=== PATIENT | female | born 1990 | race Caucasian/White ===

== ENCOUNTER 2018-05-01 09:52 | Emergency (ER) | payer OTHER ==
[~2018-05-01] VITALS: Ht 170.2 cm; Wt 90.0 kg
[~2018-05-01 09:52] MED LIST: NAPROSYN375 MG PO; TESSALON PER100 MG PO; ZITHROMAX250 MG PO
[2018-05-01] MEDS ORDERED: XANAX1 MG PO (11:02)
[2018-05-01] MEDS ORDERED: FLUCONAZOLE150 MG PO (11:18)
[2018-05-01] MEDS ORDERED: BUPROPION HCL300 MG PO (11:18)
[2018-05-01] MEDS ORDERED: DOXYCYC MONO100 M2 PO (11:19)
[2018-05-01] MEDS ORDERED: METRONIDAZOLE500 MG PO (11:19)
[2018-05-01] MEDS ORDERED: TESSALON PER100 MG PO (12:11)
[2018-05-01] MEDS ORDERED: PREDNISONE20 MG PO (12:11)
[2018-05-01 12:15] VITALS: BP 123/77
== END 2018-05-01 12:15 | disposition home or self-care (01) ==
LOC: ED 09:52
DX: R05 Cough (principal); F17.210 Nicotine dependence, cigarettes, uncomplicated; R07.9 Chest pain, unspecified

== ENCOUNTER 2019-10-09 16:06 | Emergency (ER) | payer OTHER ==
[~2019-10-09] VITALS: Ht 170.2 cm; Wt 81.0 kg
[~2019-10-09 16:06] MED LIST changes: +BUPROPION HCL300 MG PO; +DOXYCYC MONO100 M2 PO; +FLUCONAZOLE150 MG PO; +METRONIDAZOLE500 MG PO; +PREDNISONE20 MG PO; +XANAX1 MG PO
[2019-10-09 16:51] LABS: URINE BILIRUBIN - DIPSTICK NEGATIVE (NEGATIVE); URINE BLOOD DIPSTICK MODERATE (NEGATIVE); URINE COLOR YELLOW; URINE GLUCOSE - DIPSTICK NEGATIVE (NEGATIVE); URINE KETONE NEGATIVE (NEGATIVE); URINE LEUK ESTERASE NEGATIVE (NEGATIVE); URINE NITRITE - DIPSTICK NEGATIVE (Negative); URINE PROTEIN - DIPSTICK NEGATIVE (NEG-TRACE); URINE SPECIFIC GRAVITY 1.015; URINE UROBILINOGEN - DIPSTICK 0.2 E.U./dL (0.2)
[2019-10-09 17:04] LABS: URINE SQUAMOUS EPITHELIAL CELL FEW EPI/hpf (0-FEW)
[2019-10-09 17:22] LABS: HEMATOCRIT 41.5 % (37.0-47.0); HEMOGLOBIN 13.3 g/dl (12.0-16.0); IMMATURE GRANULOCYTES 0.2 % (0.0-5.0); MEAN CELL VOLUME 98.1 fL CALC (80.0-100.0); MEAN CORPUSCULAR HGB 31.4 pG CALC (26.0-32.0); NEUT# 6.43 thou/uL (2.00-7.15); RED BLOOD COUNT 4.23 mill/uL (4.20-5.60); RED CELL DISTRI WIDTH 12.7 % (11.5-15.5)
[2019-10-09 17:34] LABS: ALKALINE PHOSPHATASE 114 u/l (38-126); ANION GAP 13 (6-22 (CALC)); BUN 10 mg/dL (7-17); BUN/CREATININE RATIO 15 (12-20 (CALC)); CARBON DIOXIDE 22 mmol/l (22-30); CHLORIDE 106 mmol/l (95-108); CREATININE 0.7 mg/dL (0.5-1.0); GFR > 60 ML/MIN (>=60 (CALC)); GFR FOR AFR.AMER. > 60 ML/MIN (>=60 (CALC)); POTASSIUM 3.8 mmol/l (3.5-5.1); SGOT/AST 16 u/l (14-36); SODIUM 137 mmol/l (137-146); TOTAL PROTEIN 7.5 g/dL (6.3-8.2)
[2019-10-09 17:37] LABS: ALBUMIN 4.6 g/dL (3.2-5.0); BILIRUBIN, TOTAL 0.4 mg/dL (0.0-1.4)
[2019-10-09] MEDS ORDERED: MIRALAX3350 N1 PO ×2 (18:54)
[2019-10-09] MEDS ORDERED: KEFLEX500 M1 PO ×2 (18:54)
[2019-10-09] MEDS ORDERED: LORTAB 1010 MG PO (18:54)
[2019-10-09 19:01] VITALS: BP 112/60
== END 2019-10-09 19:11 | disposition home or self-care (01) ==
LOC: ED 16:06
PROVIDERS: Emergency Medicine
DX: N39.0 Urinary tract infection, site not specified (principal); K59.00 Constipation, unspecified; F17.210 Nicotine dependence, cigarettes, uncomplicated; Z87.440 Personal history of urinary (tract) infections
CPT/HCPCS: Q9967

== ENCOUNTER 2019-11-21 14:15 | Emergency (ER) | payer OTHER ==
[~2019-11-21] VITALS: Ht 170.2 cm; Wt 85.0 kg
[~2019-11-21 14:15] MED LIST changes: +KEFLEX500 M1 PO; +LORTAB 1010 MG PO; +MIRALAX3350 N1 PO
[2019-11-21] MEDS ORDERED: ADDERALL20 MG PO (15:00)
[2019-11-21 15:07] LABS: HEMATOCRIT 41.4 % (37.0-47.0); HEMOGLOBIN 13.2 g/dl (12.0-16.0); IMMATURE GRANULOCYTES 0.3 % (0.0-5.0); MEAN CELL VOLUME 97.2 fL CALC (80.0-100.0); MEAN CORPUSCULAR HGB CONC 31.9 g/dL CAL (32.0-36.0); NEUT# 7.85 thou/uL (2.00-7.15); RED BLOOD COUNT 4.26 mill/uL (4.20-5.60); RED CELL DISTRI WIDTH 12.2 % (11.5-15.5)
[2019-11-21 15:27] LABS: ALBUMIN 4.6 g/dL (3.2-5.0); ALKALINE PHOSPHATASE 131 u/l (38-126); ANION GAP 13 (6-22 (CALC)); BILIRUBIN, TOTAL 0.5 mg/dL (0.0-1.4); BUN 8 mg/dL (7-17); BUN/CREATININE RATIO 14 (12-20 (CALC)); CARBON DIOXIDE 24 mmol/l (22-30); CHLORIDE 104 mmol/l (95-108); CREATININE 0.6 mg/dL (0.5-1.0); GFR > 60 ML/MIN (>=60 (CALC)); GFR FOR AFR.AMER. > 60 ML/MIN (>=60 (CALC)); POTASSIUM 3.5 mmol/l (3.5-5.1); SGOT/AST 20 u/l (14-36); SODIUM 138 mmol/l (137-146); TOTAL PROTEIN 7.8 g/dL (6.3-8.2)
[2019-11-21 15:32] LABS: HCG SERUM/URINE (NEG/POS) NEGATIVE (NEGATIVE)
[2019-11-21 18:15] VITALS: BP 136/74
== END 2019-11-21 18:26 | disposition home or self-care (01) ==
LOC: ED 14:15
PROVIDERS: Family Medicine
DX: R51 Headache (principal); F41.9 Anxiety disorder, unspecified; F17.200 Nicotine dependence, unspecified, uncomplicated; Z20.828 Contact with and (suspected) exposure to other viral communicable diseases

== ENCOUNTER 2020-11-01 16:15 | Emergency (ER) | payer OTHER ==
[~2020-11-01 16:15] MED LIST changes: +ADDERALL20 MG PO
[2020-11-01 17:44] LABS: HEMATOCRIT 35.5 % (37.0-47.0); HEMOGLOBIN 11.2 g/dl (12.0-16.0); IMMATURE GRANULOCYTES 0.3 % (0.0-5.0); MEAN CELL VOLUME 100.6 fL CALC (80.0-100.0); MEAN CORPUSCULAR HGB 31.7 pG CALC (26.0-32.0); MEAN CORPUSCULAR HGB CONC 31.5 g/dL CAL (32.0-36.0); NEUT# 4.49 thou/uL (2.00-7.15); RED BLOOD COUNT 3.53 mill/uL (4.20-5.60); RED CELL DISTRI WIDTH 13.2 % (11.5-15.5)
[2020-11-01 18:04] LABS: ALBUMIN 3.5 g/dL (3.2-5.0); ALKALINE PHOSPHATASE 152 u/l (38-126); ANION GAP 12 (6-22 (CALC)); BUN 13 mg/dL (7-17); BUN/CREATININE RATIO 20 (12-20 (CALC)); CARBON DIOXIDE 21 mmol/l (22-30); CHLORIDE 105 mmol/l (95-108); CREATININE 0.6 mg/dL (0.5-1.0); GFR > 60 ML/MIN (>=60 (CALC)); GFR FOR AFR.AMER. > 60 ML/MIN (>=60 (CALC)); POTASSIUM 3.5 mmol/l (3.5-5.1); SGOT/AST 22 u/l (14-36); SODIUM 135 mmol/l (137-146); TOTAL PROTEIN 6.6 g/dL (6.3-8.2)
[2020-11-01 18:47] LABS: URINE BILIRUBIN - DIPSTICK NEGATIVE (NEGATIVE); URINE BLOOD DIPSTICK LARGE (NEGATIVE); URINE COLOR YELLOW; URINE GLUCOSE - DIPSTICK NEGATIVE (NEGATIVE); URINE KETONE NEGATIVE (NEGATIVE); URINE PROTEIN - DIPSTICK NEGATIVE (NEG-TRACE); URINE SPECIFIC GRAVITY >=1.030; URINE UROBILINOGEN - DIPSTICK 0.2 E.U./dL (0.2)
[2020-11-01 18:49] LABS: URINE LEUK ESTERASE SMALL (NEGATIVE); URINE NITRITE - DIPSTICK NEGATIVE (Negative)
[2020-11-01 19:06] LABS: URINE CALCIUM OXALATE CRYSTALS MODERATE lpf; URINE MUCUS FEW hpf (NONE-FEW); URINE SQUAMOUS EPITHELIAL CELL FEW EPI/hpf (0-FEW)
[2020-11-01] MEDS ORDERED: LORTAB 1010 MG PO (19:10)
[2020-11-01] MEDS ORDERED: KEFLEX500 MG PO (19:10)
[2020-11-01 19:47] VITALS: BP 121/62
== END 2020-11-01 19:48 | disposition home or self-care (01) ==
LOC: ED 16:15
PROVIDERS: Emergency Medicine
DX: O98.53 Other viral diseases complicating the puerperium (principal); U07.1 COVID-19; O86.20 Urinary tract infection following delivery, unspecified; O99.335 Smoking (tobacco) complicating the puerperium; F17.200 Nicotine dependence, unspecified, uncomplicated; L97.429 Non-pressure chronic ulcer of left heel and midfoot with unspecified severity

== ENCOUNTER 2021-02-14 10:48 | Emergency (ER) | payer OTHER ==
[~2021-02-14] VITALS: Ht 170.2 cm; Wt 81.8 kg
[~2021-02-14 10:48] MED LIST changes: +KEFLEX500 MG PO
[2021-02-14 11:59] LABS: URINE BILIRUBIN - DIPSTICK NEGATIVE (NEGATIVE); URINE BLOOD DIPSTICK MODERATE (NEGATIVE); URINE COLOR YELLOW; URINE GLUCOSE - DIPSTICK NEGATIVE (NEGATIVE); URINE KETONE NEGATIVE (NEGATIVE); URINE PROTEIN - DIPSTICK NEGATIVE (NEG-TRACE); URINE UROBILINOGEN - DIPSTICK 0.2 E.U./dL (0.2)
[2021-02-14 12:04] LABS: URINE LEUK ESTERASE MODERATE (NEGATIVE); URINE NITRITE - DIPSTICK NEGATIVE (Negative)
[2021-02-14 12:05] LABS: URINE BACTERIA FEW hpf; URINE EPITHELIAL CELLS FEW EPI/hpf (0-FEW)
[2021-02-14 12:48] LABS: HEMATOCRIT 36.5 % (37.0-47.0); HEMOGLOBIN 11.9 g/dl (12.0-16.0); IMMATURE GRANULOCYTES 0.2 % (0.0-5.0); MEAN CELL VOLUME 97.9 fL CALC (80.0-100.0); MEAN CORPUSCULAR HGB 31.9 pG CALC (26.0-32.0); MEAN CORPUSCULAR HGB CONC 32.6 g/dL CAL (32.0-36.0); NEUT# 5.59 thou/uL (2.00-7.15); RED BLOOD COUNT 3.73 mill/uL (4.20-5.60); RED CELL DISTRI WIDTH 12.8 % (11.5-15.5)
[2021-02-14 13:03] LABS: ALBUMIN 4.1 g/dL (3.2-5.0); ALKALINE PHOSPHATASE 109 u/l (38-126); BUN 14 mg/dL (7-17); BUN/CREATININE RATIO 23 (12-20 (CALC)); CHLORIDE 107 mmol/l (95-108); CREATININE 0.6 mg/dL (0.5-1.0); GFR > 60 ML/MIN (>=60 (CALC)); GFR FOR AFR.AMER. > 60 ML/MIN (>=60 (CALC)); LIPASE 55 u/l (23-300); SGOT/AST 20 u/l (14-36); SODIUM 140 mmol/l (137-146); TOTAL PROTEIN 7.5 g/dL (6.3-8.2)
[2021-02-14 13:04] LABS: ANION GAP 11 (6-22 (CALC)); CARBON DIOXIDE 26 mmol/l (22-30)
[2021-02-14 13:05] LABS: BILIRUBIN, TOTAL 0.3 mg/dL (0.0-1.4)
[2021-02-14] MEDS ORDERED: HYDROCO/APAP1 TA9 PO (14:56)
[2021-02-14 15:37] VITALS: BP 126/62
== END 2021-02-14 15:30 | disposition home or self-care (01) ==
LOC: ED 10:48
PROVIDERS: Family Medicine
DX: S06.0X0A Concussion without loss of consciousness, initial encounter (principal); S80.12XA Contusion of left lower leg, initial encounter; S80.11XA Contusion of right lower leg, initial encounter; S80.02XA Contusion of left knee, initial encounter; M79.641 Pain in right hand; M25.531 Pain in right wrist; M54.6 Pain in thoracic spine; M54.50 Low back pain, unspecified; F41.9 Anxiety disorder, unspecified; F17.200 Nicotine dependence, unspecified, uncomplicated; Y09 Assault by unspecified means; Y92.009 Unspecified place in unspecified non-institutional (private) residence as the place of occurrence of the external cause
CPT/HCPCS: Q9967

== ENCOUNTER 2022-03-16 20:41 | Emergency (ER) | payer OTHER ==
[~2022-03-16] VITALS: Ht 170.2 cm; Wt 74.1 kg
[~2022-03-16 20:41] MED LIST changes: +HYDROCO/APAP1 TA9 PO
[2022-03-16] MEDS ORDERED: OXYCODO-APAP1 TA2 PO ×2 (21:04→21:06)
[2022-03-16] MEDS ORDERED: XANAX1 MG PO (21:08)
[2022-03-16 21:45] LABS: BASO% 0.4 % (0-3); EOS% 0.3 % (0-8); HEMATOCRIT 32.6 % (37.0-47.0); HEMOGLOBIN 10.6 g/dl (12.0-16.0); IMMATURE GRANULOCYTES 0.1 % (0.0-5.0); LYMPH% 22.1 % (15-41); MEAN CELL VOLUME 92.9 fL CALC (80.0-100.0); MEAN CORPUSCULAR HGB 30.2 pG CALC (26.0-32.0); MEAN CORPUSCULAR HGB CONC 32.5 g/dL CAL (32.0-36.0); MONO% 6.3 % (2-13); NEUT# 4.82 thou/uL (2.00-7.15); NEUT% 70.8 % (42-76); RED BLOOD COUNT 3.51 mill/uL (4.20-5.60)
[2022-03-16 22:01] LABS: ALBUMIN 4.6 g/dL (3.2-5.0); ALKALINE PHOSPHATASE 131 u/l (38-126); ANION GAP 14 (6-22 (CALC)); BILIRUBIN, TOTAL 0.3 mg/dL (0.0-1.4); BUN 11 mg/dL (7-17); BUN/CREATININE RATIO 16 (12-20 (CALC)); CARBON DIOXIDE 24 mmol/l (22-30); CHLORIDE 110 mmol/l (95-108); CREATININE 0.7 mg/dL (0.5-1.0); GFR FOR AFR.AMER. > 60 ML/MIN (>=60 (CALC)); GFR OTHER RACES > 60 ML/MIN (>=60 (CALC)); POTASSIUM 3.8 mmol/l (3.5-5.1); SGOT/AST 22 u/l (14-36); SODIUM 144 mmol/l (137-146); TOTAL PROTEIN 7.6 g/dL (6.3-8.2)
[2022-03-16 22:37] LABS: URINE BILIRUBIN - DIPSTICK NEGATIVE (NEGATIVE); URINE BLOOD DIPSTICK NEGATIVE (NEGATIVE); URINE COLOR YELLOW; URINE GLUCOSE - DIPSTICK NEGATIVE (NEGATIVE); URINE KETONE 15 mg/dL (NEGATIVE); URINE LEUK ESTERASE NEGATIVE (NEGATIVE); URINE PH 5.5 (4.5-8.0); URINE PROTEIN - DIPSTICK TRACE mg/dL (NEG-TRACE); URINE SPECIFIC GRAVITY >=1.030; URINE UROBILINOGEN - DIPSTICK 0.2 E.U./dL (0.2)
[2022-03-16 22:38] LABS: URINE NITRITE - DIPSTICK NEGATIVE (Negative)
[2022-03-17] MEDS ORDERED: NAPROXEN500 MG PO (00:34)
[2022-03-17 00:37] VITALS: BP 133/82
== END 2022-03-17 01:05 | disposition home or self-care (01) ==
LOC: ED 20:41
PROVIDERS: Emergency Medicine
DX: R51.9 Headache, unspecified (principal); F41.9 Anxiety disorder, unspecified; F17.200 Nicotine dependence, unspecified, uncomplicated